=== PATIENT | male | born 1975 | race Caucasian/White ===

== ENCOUNTER 2022-09-29 10:40 | Emergency (ER) | payer SELFPAY ==
[2022-09-29 10:45] VITALS: BMI 23.7
[2022-09-29 12:02] LABS: HEMATOCRIT 37.2 % (35.4-49); HEMOGLOBIN 12.7 GM/dL (11.7-16.9); MCH 30.2 pg (25.7-33.7); MCHC 34.2 g/dl (32.0-35.9); MEAN CELL VOLUME 88.4 fl (80-96); MEAN PLT VOLUME 7.7 fl (7.5-11.1); PLATELET COUNT 189 10^3/uL (134-434); RDW 13.7 % (11.9-15.9); WHITE BLOOD COUNT 7.7 K/mm3 (4.0-10.0)
[2022-09-29 12:33] LABS: ALBUMIN 3.8 g/dl (3.4-5.0); BLOOD UREA NITROGEN 15.2 mg/dL (7-18); CALCIUM 9.1 mg/dL (8.5-10.1)
[2022-09-29 12:36] LABS: CREATININE 0.9 mg/dL (0.55-1.3)
[2022-09-29 12:38] LABS: TOT PROT 7.2 g/dl (6.4-8.2)
[2022-09-29 16:08] VITALS: BP 130/76; PULSE 88; RESP 16; TEMP 98.2
== END 2022-09-29 16:00 | disposition home or self-care (01) ==
LOC: JER 10:40
DX: U07.1 COVID-19 (principal); R45.851 Suicidal ideations; F10.930 Alcohol use, unspecified with withdrawal, uncomplicated; Y90.6 Blood alcohol level of 120-199 mg/100 ml
CPT/HCPCS: 36415; 80053; 80307; 85027; 93005; 93010; 99283-25; C9803-CS; U0003; U0005